=== PATIENT | female | born 1985 | race Caucasian/White ===

== ENCOUNTER 2022-07-25 00:06 | Emergency (ER) | payer OTHER, SELFPAY ==
[2022-07-25 00:28] VITALS: BP 147/108; PULSE 108; RESP 20; TEMP 36.8; O2SAT 100
[2022-07-25 00:43] LABS: Glucose Point of Care 115 mg/dl (65-105)
--- NOTE | 2022-07-25 00:53 | PC.NURSE ---
pt refusing lab work and testing. Pt is A/O x4 .
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
[2022-07-25 01:07] VITALS: BP 142/98; PULSE 102; RESP 16; O2SAT 98
== END 2022-07-25 01:07 | disposition left against medical advice (07) ==
PROVIDERS: Emergency Provider Nurse Practitioner Family
DX: T14.90XA Injury, unspecified, initial encounter (principal); G40.909 Epilepsy, unspecified, not intractable, without status epilepticus; T42.76XA Underdosing of unspecified antiepileptic and sedative-hypnotic drugs, initial encounter; V68.5XXA Driver of heavy transport vehicle injured in noncollision transport accident in traffic accident, initial encounter
CPT/HCPCS: 82948; 99283

== ENCOUNTER 2022-07-25 06:48 | Emergency (ER) | payer SELFPAY ==
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
[2022-07-25 06:55] VITALS: BP 139/96; PULSE 97; RESP 16; O2SAT 99
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
--- NOTE | 2022-07-25 07:47 | ECG_ITS ---
Measurements Intervals Micro Rate: 99 P: 69 [place]: 155 QRS: 72 QRSD: 88 T: 52 QT: 356 QTc: 457 Interpretive Statements SINUS RHYTHM POSSIBLE LEFT ATRIAL ENLARGEMENT BORDERLINE T WAVE ABNORMALITY- ANTERIOR LEADS BASELINE ARTIFACT- AVR, AVL, AVF, V1-V3 BORDERLINE ECG NO PREVIOUS ECG AVAILABLE FOR COMPARISON Electronically Signed On 07-25-2022 8:06:32 HEALTH AND WELLNESS MANAGER by Kvng Chiang D.O.
[2022-07-25 08:24] LABS: Basophils Percent Auto 0.4 % (0.2-1.2); Hematocrit 43.6 % (37.0-47.0); Hemoglobin 14.9 g/dL (12.0-15.0); Immature Granulocyte Absolute 0.04 K/mm3 (0.00-0.031); Immature Granulocyte Percent A 0.4 % (0-0.5); Lymphocytes Absolute Auto 0.82 K/mm3 (0.9-3.2); Lymphocytes Percent Auto 7.2 % (18.3-44.2); Mean Corpuscular HGB Conc 34.2 g/dl (32-36); Mean Corpuscular Hemoglobin 31.9 pg (26-34); Mean Corpuscular Volume 93.4 fl (80-100); Mean Platelet Volume 10.3 fl (7.4-10.4); Monocytes Absolute Auto 0.4 K/mm3 (0.1-0.6); Monocytes Percent Auto 3.9 % (2.6-8.5); Neutrophils Percent Auto 88.1 % (45.5-73.1); Platelet Count Result 236 k/mm3 (150-375); Red Blood Count 4.67 M/mm3 (4.2-5.4); Red Cell Distribution Width 12.7 % (11.5-14.5); White Blood Count 11.3 K/mm3 (4.5-10.0)
[2022-07-25 08:46] LABS: Alanine Aminotransferase 36 U/L (6-35); Albumin Level 4.7 g/dL (3.5-5.1); Alkaline Phosphatase 85 U/L (38-126); Anion Gap 12 mmol/L (8-16); Aspartate Amino Transferase 37 U/L (14-36); Bilirubin,Total 0.7 mg/dL (0.2-1.3); Blood Urea Nitrogen 11 mg/dL (7-17); Calcium 9.4 mg/dL (8.4-10.2); Carbon Dioxide 23 mmol/L (22-30); Chloride 102 mmol/L (98-107); Estimated CRCL calculation 97 ml/min; Estimated Glomerular Filt Rate > 60; Glucose 105 mg/dL (65-110); Lipase 25 U/L (23-300); Potassium 3.7 mmol/L (3.4-5.0); Sodium 137 mmol/L (137-145)
[2022-07-25 08:50] LABS: Ethanol < 10 mg/dL (<10)
[2022-07-25 08:56] LABS: Troponin I < 0.012 ng/mL (0.000-0.034)
[2022-07-25 08:56] LABS: Appearance Urine Cloudy (Clear); Bilirubin Urine 1+ (Negative); Blood Urine 1+ (Negative); Color Urine Yellow (Yellow); Glucose Urine UA Negative (Negative); Ketones Urine 3+ mg/dL (Negative); Leukocyte Esterase Ur 3+ LEU/UL (Negative); Nitrate Urine Negative (Negative); Protein Urine 1+ mg/dL (Negative); Specific Grav Ur >= 1.030 (1.001-1.035); Urobilinogen Urine 0.2 mg/dL (<2.0); pH Urine 5.5 (5.0-9.0)
[2022-07-25 09:13] LABS: Mucus Urine Heavy /lpf; RBC Urine 51-75 /hpf (0-2); Squamous Epithelial Cell Urine Many /hpf (Few); WBC Urine >75 /hpf
[2022-07-25] MEDS: OXcarbazepine 300 MG TABLET 600 MG PO (09:15)
[2022-07-25 09:18] LABS: Add Urine Microscopic? YES
[2022-07-25 09:29] LABS: Barbiturate Screen Urine Negative (Negative); Benzodiazepines Screen Urine Positive (Negative)
[2022-07-25 09:35] LABS: Cocaine Screen Urine Positive (Negative)
[2022-07-25 09:36] LABS: Methadone Screen Urine Positive (Negative); Opiate Screen Urine Negative (Negative); Phencyclidine Screen Urine Negative (Negative)
[2022-07-25 09:56] LABS: Valproic Acid < 10.0 ug/mL (50-120)
[2022-07-25 10:29] LABS: Cannabinoid Screen Urine Negative (Negative)
[2022-07-25 11:11] VITALS: BP 120/67; PULSE 99; RESP 20; TEMP 36.8; O2SAT 98
[2022-07-25] MEDS: SULFAMETHOXAZOLE/TRIMETHOPRIM 400/80 MG TABLET 1 TAB PO (11:12)
[2022-07-25 11:22] LABS: Amphetamine Screen Urine Positive (Negative)
== END 2022-07-25 11:57 ==
PROVIDERS: Emergency Provider Emergency Medicine
DX: T14.8XXA Other injury of unspecified body region, initial encounter (principal); N39.0 Urinary tract infection, site not specified; F19.10 Other psychoactive substance abuse, uncomplicated; R56.9 Unspecified convulsions; T42.6X6A Underdosing of other antiepileptic and sedative-hypnotic drugs, initial encounter; M47.812 Spondylosis without myelopathy or radiculopathy, cervical region; R93.7 Abnormal findings on diagnostic imaging of other parts of musculoskeletal system; R94.31 Abnormal electrocardiogram [ECG] [EKG]; V59.9XXA Occupant (driver) (passenger) of pick-up truck or van injured in unspecified traffic accident, initial encounter
CPT/HCPCS: 36415; 70450; 71260; 72125; 73502; 73562; 74177; 80053; 80164; 80307; 81001; 81025; 83690; 84484; 85025; 87077; 87086; 87088; 87186; 93005; 96365; 99284; A9270; J0696; L0140; Q9967